=== PATIENT | female | born 1955 | race Caucasian/White ===

== ENCOUNTER → 2017-10-11 | Outpatient (CLI) | payer BC | LOC: BRMIMAGING 14:54 | DX: Z12.31 Encounter for screening mammogram for malignant neoplasm of breast (principal) ==

== ENCOUNTER → 2017-10-20 | Outpatient (CLI) | payer BC | LOC: BRMIMAGING 08:48 | DX: R92.8 Other abnormal and inconclusive findings on diagnostic imaging of breast (principal) | CPT/HCPCS: 76641-PO ==

== ENCOUNTER → 2018-12-08 | Outpatient (CLI) | payer BC | LOC: BRMIMAGING 12:15 ==